=== PATIENT | female | born 1990 | race Caucasian/White ===

== ENCOUNTER 2016-08-03 14:43 | Emergency (ER) | payer OTHER ==
[~2016-08-03] VITALS: Ht 175.3 cm; Wt 88.6 kg
[2016-08-03 15:13] LABS: APPEARANCE,URINE CLOUDY (CLEAR); GLUCOSE, URINE (UA) NEGATIVE (NEGATIVE); KETONES,URINE NEGATIVE (NEGATIVE); LEUKOCYTE ESTERASE ,URINE NEGATIVE (NEGATIVE); OCCULT BLOOD,URINE LARGE (NEGATIVE); PH,URINE 5.5 (5.0-8.0); PROTEIN,URINE NEGATIVE (NEGATIVE)
[2016-08-03 15:23] LABS: ADD UA MICROSCOPIC YES
[2016-08-03 16:00] LABS: SQUAMOUS EPITHELIAL CELL,UR Few /LPF (None Seen)
[2016-08-03 16:01] LABS: BASOPHILS # (AUTO) 0.03 K/uL (0.00-0.20); BASOPHILS % (AUTO) 0.3 % (0.0-2.0); EOSINOPHILS # (AUTO) 0.09 K/uL (0.00-0.70); EOSINOPHILS % (AUTO) 0.85 % (1.0-6.0); HEMATOCRIT 35.9 % (36-46); HEMOGLOBIN 11.9 g/dL (12.0-16.0); LYMPHOCYTES # (AUTO) 2.2 K/uL (1.0-4.8); LYMPHOCYTES % (AUTO) 21.2 % (22.0-44.0); MEAN CORPUSCULAR HEMOGLOBIN 29.5 pg (26.0-34.0); MEAN CORPUSCULAR VOLUME 89 fL (80-100); MONOCYTES # (AUTO) 0.6 K/uL (0.1-1.0); MONOCYTES % (AUTO) 5.7 % (2.0-9.0); NEUTROPHILS # (AUTO) 7.5 K/uL (1.8-7.7); NEUTROPHILS % (AUTO) 71.9 % (40.0-70.0); PLATELET COUNT (AUTO) 241 K/uL (150-450); RED BLOOD CELL COUNT(AUTO) 4.01 MIL/uL (4.00-5.20); RED CELL DISTRIBUTION WIDTH 12.5 % (11.5-14.5); WHITE BLOOD COUNT (AUTO) 10.5 K/uL (4.5-11.0)
[2016-08-03 16:03] LABS: RBC,URINE Full Field /HPF (0-2); WBC,URINE 0-2 /HPF (0-5)
[2016-08-03 16:19] LABS: ANION GAP 9 mmol/L (8-16); CALCIUM, TOTAL 8.5 mg/dL (8.8-10.5); CARBON DIOXIDE 27 mmol/L (22-29); CHLORIDE 102 mmol/L (98-107); CREATININE 0.72 mg/dL (0.60-1.30); GLOMERULAR FILTR. RATE CALC > 60 mL/min (>60); POTASSIUM 4.2 mmol/L (3.5-5.1); SODIUM SERUM 138 mmol/L (136-145); UREA NITROGEN, BLOOD 14 mg/dL (7-18)
[2016-08-03 16:20] LABS: ALANINE AMINOTRANSFERASE 22 U/L (12-78); ALBUMIN 3.7 g/dL (3.4-5.0); ASPARTATE AMINOTRANSFERASE 13 U/L (15-37); BILIRUBIN,TOTAL 0.1 mg/dL (0.1-1.0); TOTAL PROTEIN, SERUM 7.2 g/dL (6.4-8.2)
[2016-08-03] MEDS ORDERED: HYDROCODONE/ACETAMINOPHEN 5-325 MG TABLET PO ONE (18:45)
[2016-08-03] MEDS ORDERED: SULFAMETHOX/TRIMETH DS 800-160 MG/TABLET PO ONE (21:45)
[2016-08-03] MEDS ORDERED: PHENAZOPYRIDINE HCL 100 MG TABLET PO ONE (21:45)
[2016-08-03 21:56] VITALS: BP 128/87
== END 2016-08-03 21:57 | disposition home or self-care (01) ==
LOC: EMS 14:44
DX: N93.8 Other specified abnormal uterine and vaginal bleeding (principal); N94.6 Dysmenorrhea, unspecified; N83.209 Unspecified ovarian cyst, unspecified side; R30.0 Dysuria
CPT/HCPCS: 76801; 76817; 99285

== ENCOUNTER 2016-09-09 13:50 | Emergency (ER) | payer OTHER ==
[~2016-09-09] VITALS: Ht 175.3 cm; Wt 86.8 kg
[2016-09-09] MEDS ORDERED: PREN-154 PO (13:59)
[2016-09-09 14:24] LABS: BASOPHILS % (AUTO) 0.4 % (0.0-2.0); EOSINOPHILS % (AUTO) 0.8 % (1.0-6.0); HEMATOCRIT 35.7 % (36-46); HEMOGLOBIN 11.7 g/dL (12.0-16.0); LYMPHOCYTES # (AUTO) 1.9 K/uL (1.0-4.8); LYMPHOCYTES % (AUTO) 20.9 % (22.0-44.0); MEAN CORPUSCULAR HGB CONC 32.7 G/dL (31.0-37.0); MEAN CORPUSCULAR VOLUME 89 fL (80-100); MONOCYTES # (AUTO) 0.6 K/uL (0.1-1.0); MONOCYTES % (AUTO) 6.5 % (2.0-9.0); NEUTROPHILS # (AUTO) 6.4 K/uL (1.8-7.7); NEUTROPHILS % (AUTO) 71.4 % (40.0-70.0); PLATELET COUNT (AUTO) 223 K/uL (150-450); RED BLOOD CELL COUNT(AUTO) 4.02 MIL/uL (4.00-5.20); RED CELL DISTRIBUTION WIDTH 13.2 % (11.5-14.5); WHITE BLOOD COUNT (AUTO) 8.9 K/uL (4.5-11.0)
[2016-09-09 17:42] VITALS: BP 123/74
== END 2016-09-09 18:06 | disposition home or self-care (01) ==
LOC: EMS 13:51
DX: O20.0 Threatened abortion (principal); Z3A.01 Less than 8 weeks gestation of pregnancy
CPT/HCPCS: 76801; 76817; 86901; 99285

== ENCOUNTER 2016-12-02 16:27 | Emergency (ER) | payer OTHER ==
[~2016-12-02] VITALS: Ht 175.3 cm; Wt 87.3 kg
[~2016-12-02 16:27] MED LIST: PREN-154 PO
[2016-12-02 16:28] VITALS: BP 133/95
[2016-12-02] MEDS ORDERED: IBUPROFEN 800 MG TABLET PO ONE (17:15)
[2016-12-02 17:32] LABS: APPEARANCE,URINE CLEAR (CLEAR); GLUCOSE, URINE (UA) NEGATIVE (NEGATIVE); KETONES,URINE NEGATIVE (NEGATIVE); LEUKOCYTE ESTERASE ,URINE NEGATIVE (NEGATIVE); PH,URINE 5.5 (5.0-8.0); PROTEIN,URINE NEGATIVE (NEGATIVE)
[2016-12-02 17:36] LABS: ADD UA MICROSCOPIC YES; OCCULT BLOOD,URINE SMALL (NEGATIVE); SQUAMOUS EPITHELIAL CELL,UR Few /LPF (None Seen); WBC,URINE 0-2 /HPF (0-5)
== END 2016-12-02 18:14 | disposition home or self-care (01) ==
LOC: EMS 16:31
DX: B37.3 Candidiasis of vulva and vagina (principal)
CPT/HCPCS: 99283

== ENCOUNTER 2017-03-02 15:42 | Emergency (ER) | payer OTHER ==
[~2017-03-02] VITALS: Ht 172.7 cm; Wt 86.4 kg
[2017-03-02 16:58] LABS: APPEARANCE,URINE CLOUDY (CLEAR); GLUCOSE, URINE (UA) NEGATIVE (NEGATIVE); KETONES,URINE NEGATIVE (NEGATIVE); LEUKOCYTE ESTERASE ,URINE SMALL (NEGATIVE); OCCULT BLOOD,URINE NEGATIVE (NEGATIVE); PH,URINE 5.5 (5.0-8.0); PROTEIN,URINE NEGATIVE (NEGATIVE)
[2017-03-02] MEDS ORDERED: HYDROCODONE/ACETAMINOPHEN 5-325 MG TABLET PO ONE (17:00)
[2017-03-02] MEDS ORDERED: METHOCARBAMOL 500 MG TABLET PO ONE (17:00)
[2017-03-02 17:11] LABS: RBC,URINE None Seen /HPF (0-2); SQUAMOUS EPITHELIAL CELL,UR Rare /LPF (None Seen)
[2017-03-02] MEDS ORDERED: TraMADol HCL 50 MG TABLET PO ONE (17:15)
[2017-03-02] MEDS ORDERED: CIPROFLOXACIN HCL 250 MG TABLET PO ONE (17:15)
[2017-03-02 17:18] VITALS: BP 118/78
== END 2017-03-02 18:32 | disposition home or self-care (01) ==
LOC: EMS 15:43
DX: M54.41 Lumbago with sciatica, right side (principal); N39.0 Urinary tract infection, site not specified
CPT/HCPCS: 87086; 99284

== ENCOUNTER 2017-05-14 17:58 | Emergency (ER) | payer OTHER ==
[~2017-05-14] VITALS: Ht 175.3 cm; Wt 81.8 kg
[2017-05-14] MEDS ORDERED: ACYCLOVIR 200 MG CAPSULE PO ONE (19:15)
[2017-05-14] MEDS ORDERED: ACETAMINOPHEN 325 MG TABLET PO ONE (19:15)
[2017-05-14] MEDS ORDERED: MUPIROCIN CALCIUM 2% 22 GM OINTMENT TP ONE (19:15)
[2017-05-14 20:04] VITALS: BP 128/85
== END 2017-05-14 20:05 | disposition home or self-care (01) ==
LOC: EMS 18:00
DX: A60.00 Herpesviral infection of urogenital system, unspecified (principal)
CPT/HCPCS: 99284

== ENCOUNTER 2017-05-30 19:09 | Emergency (ER) | payer OTHER ==
[~2017-05-30] VITALS: Ht 175.3 cm; Wt 86.4 kg
[2017-05-30 19:33] LABS: APPEARANCE,URINE CLEAR (CLEAR); GLUCOSE, URINE (UA) NEGATIVE (NEGATIVE); KETONES,URINE NEGATIVE (NEGATIVE); LEUKOCYTE ESTERASE ,URINE NEGATIVE (NEGATIVE); OCCULT BLOOD,URINE MODERATE (NEGATIVE); PROTEIN,URINE NEGATIVE (NEGATIVE)
[2017-05-30 19:39] LABS: SQUAMOUS EPITHELIAL CELL,UR Moderate /LPF (None Seen); WBC,URINE 0-2 /HPF (0-5)
[2017-05-30] MEDS ORDERED: LIDOCAINE HCL/PF 1% 2 ML VIAL IM ONE (22:00)
[2017-05-30] MEDS ORDERED: CefTRIAXone SODIUM 1 GM/VIAL IM ONE (22:00)
[2017-05-30] MEDS ORDERED: AZITHROMYCIN 250 MG TABLET PO ONE (22:00)
[2017-05-30 22:01] VITALS: BP 134/78
[2017-06-02 05:07] LABS: GC DNA N.A. AMPLIFY Negative (Negative)
== END 2017-05-30 22:02 | disposition home or self-care (01) ==
LOC: EMS 19:10
DX: N72 Inflammatory disease of cervix uteri (principal)
CPT/HCPCS: 81001; 84703; 87210; 87491; 87591; 96372; 99284; J0696; J3490